=== PATIENT | male | born 1945 | race Caucasian/White ===

== ENCOUNTER 2020-08-26 07:59 | Day surgery (SDC) | payer MEDICARE, SELFPAY ==
[2020-08-21 09:28] VITALS: BMI 29.1
--- NOTE | 2020-08-22 08:01 | MHC.SHP ---
Pre-Procedural Eval Section A The patient is an INPATIENT: No The History & Physical has been completed within 30 days and I have reviewed it.: Yes Section B Chief Complaint: Cataract Right Eye Allergies: Allergies Allergy/AdvReac Type Severity Reaction Status Date / Time Iodinated Contrast Media Allergy Intermediate HIVES Verified 08/21/20 09:17 [IV CONTRAST] Plan Diagnosis/Plan: Unchanged Patient has been examined and remains a candidate for the planned procedure
--- NOTE | 2020-08-23 09:24 | P.CONAN_ITS ---
Documented by User: Yaneli Flowers 08/23/20 09:25 HPI - Anesthesia Eval Consult details Narrative: 74yo M for cataract PCP cleared [facility] Past Medical History Medical History Arthritis BPH (benign prostatic hyperplasia) COPD (chronic obstructive pulmonary disease) Elevated cholesterol HTN (hypertension) PVD (peripheral vascular disease) Thyroid disease Urinary frequency Surgical History Surgical History H/O colonoscopy History of carotid endarterectomy History of total left knee replacement Social History Social History Smoking Status: Former smoker Smoked in Last 30 Days: No Smoking Quit Date: 2015 Use of substances other than those prescribed or required for medical reasons: No Advance Directives Information Provided: No Recently lost weight without trying: No Meds Allergies Allergy/AdvReac Type Severity Reaction Status Date / Time Iodinated Contrast Media Allergy Intermediate HIVES Verified 08/21/20 09:17 [IV CONTRAST] Home Medications Medication Instructions Recorded Confirmed Type amlodipine 1 tab PO QAM 08/21/20 08/21/20 History aspirin [Aspirin Low Dose] 162 mg PO DAILY 08/21/20 08/21/20 History atorvastatin 1 tab PO BEDTIME 08/21/20 08/21/20 History cholecalciferol (vitamin D3) 25 mcg PO DAILY 08/21/20 08/21/20 History [Vitamin D3] levothyroxine 1 tab PO QAM 08/21/20 08/21/20 History lisinopril 1 tab PO DAILY 08/21/20 08/21/20 History multivitamin 1 tab PO DAILY 08/21/20 08/21/20 History tamsulosin 1 cap PO QPM 08/21/20 08/21/20 History Exam Exam Date and Time: August 23, 202024 Height,Weight and Vital Signs: Height 5 ft 11 in Weight 94.801 kg Assessment and Plan Assessment Anesthesia Assessment: Chart Reviewed Documented by User: Bree Yuan 08/26/20 09:48 [facility] Past Medical History Medical History Arthritis BPH (benign prostatic hyperplasia) COPD (chronic obstructive pulmonary disease) Elevated cholesterol HTN (hypertension) PVD (peripheral vascular disease) Thyroid disease Urinary frequency Surgical History Surgical History H/O colonoscopy History of carotid endarterectomy History of total left knee replacement Social History Social History Smoking Status: Former smoker Smoked in Last 30 Days: No Smoking Quit Date: 2015 Use of substances other than those prescribed or required for medical reasons: No Advance Directives Information Provided: No Recently lost weight without trying: No Meds Allergies Allergy/AdvReac Type Severity Reaction Status Date / Time Iodinated Contrast Media Allergy Intermediate HIVES Verified 08/21/20 09:17 [IV CONTRAST] Home Medications Medication Instructions Recorded Confirmed Type amlodipine 1 tab PO QAM 08/21/20 08/21/20 History aspirin [Aspirin Low Dose] 162 mg PO DAILY 08/21/20 08/21/20 History atorvastatin 1 tab PO BEDTIME 08/21/20 08/21/20 History cholecalciferol (vitamin D3) 25 mcg PO DAILY 08/21/20 08/21/20 History [Vitamin D3] levothyroxine 1 tab PO QAM 08/21/20 08/21/20 History lisinopril 1 tab PO DAILY 08/21/20 08/21/20 History multivitamin 1 tab PO DAILY 08/21/20 08/21/20 History tamsulosin 1 cap PO QPM 08/21/20 08/21/20 History Exam Airway Mallampati Class: II TM Dist: >3cm Neck ROM: Full Loose/Missing/Broken Teeth: Yes (Bigelow upper crown) Heart: RRR Lungs: CTA BL Assessment and Plan Assessment Anesthesia Assessment: Anesthesia Plan Discussed and Chart Reviewed Final Anesthetic Review NPO: Yes (Sip water with meds) ASA Class: III Final Preanesthetic Review: Meds/Allgs Chart Reviewed and Consent Obtained/Reviewed Patient Risk: Low Procedure Risk: Low Anesthetic Plan Anesthetic Plan: MAC: Disposition: Standard PACU
[2020-08-26 09:34] VITALS: BP 192/87; PULSE 59; RESP 16; TEMP 36.1; O2SAT 98
[2020-08-26] MEDS: Tropicamide 1 % Ophth Sol 3 ML BTL 1 DROP EYE-RIGHT ×3 (09:49→09:55)
[2020-08-26] MEDS: Tetracaine HCl/PF 0.5% Oph Sol 4 ML DROPS 1 DROP EYE-RIGHT (09:49)
[2020-08-26] MEDS: Lactated Ringers 500 ML 50 ML IV (09:50)
--- NOTE | 2020-08-26 10:30 | HO.PNOPHT ---
Ophthalmology Procedure Procedure Ophthalmology Viscoelastic: Rachel Albright Dual Pack Pro Ophthalmology Lenses: TECNIS [id number] (23) Procedure Notes: PREOPERATIVE DIAGNOSIS: Decreased visual acuity right eye secondary to cataract POSTOPERATIVE DIAGNOSIS: Same PROCEDURE: Right cataract extraction with intraocular lens insertion SURGEON: Wade Auguste M.D. ANESTHESIA: Topical/MAC ESTIMATED BLOOD LOSS: None COMPLICATIONS: None After obtaining informed consent, the patient was brought to the operating room suite and placed in the supine position. After adequate sedation per anesthesia, topical drops of Tetracaine were given to the right eye. The eye was then prepped and draped in the usual sterile fashion. The operating room microscope was then positioned over the operative eye and a lid speculum placed. A paracentesis was created. Viscoelastic was then instilled into the anterior chamber. A three plane incision was then created temporally, utilizing a 2.85 mm keratome. Capsulotomy forceps were then utilized to create a circular tear capsulotomy. Hydrodissection and hydrodelineation were carried out until adequate mobilization of the nucleus occurred. Phacoemulsification was then utilized to remove the dense central nucleus followed by removal of the cortical material utilizing the automated aspiration irrigation unit. Viscoelastic was instilled into the posterior capsular bag followed by placement of a posterior chamber intraocular lens without difficulty. The residual Viscoelastic was then removed utilizing the automated IA machine. The wound was checked and found to be watertight. The patient tolerated the procedure well and the lid speculum was removed. Intracameral injection of Vigamox 0.1 mL followed by a subtenon injection of Kenalog-40 0.2 mL were administered. The patient will be seen in the a.m.
== END 2020-08-26 11:00 | disposition home or self-care (01) ==
PROVIDERS: PCP Internal Medicine; Visit Provider Ophthalmology
PROC: (CPT 66985; principal; 2020-08-26 10:00)
DX: H25.11 Age-related nuclear cataract, right eye (principal); H54.7 Unspecified visual loss; I10 Essential (primary) hypertension; E78.00 Pure hypercholesterolemia, unspecified; J44.9 Chronic obstructive pulmonary disease, unspecified; Z79.899 Other long term (current) drug therapy; Z79.82 Long term (current) use of aspirin; Z87.891 Personal history of nicotine dependence; Z91.041 Radiographic dye allergy status
CPT/HCPCS: 66984; J2250; J3010; J3300; V2632

== ENCOUNTER 2020-09-09 09:04 | Day surgery (SDC) | payer MEDICARE, SELFPAY ==
--- NOTE | 2020-09-05 07:58 | MHC.SHP ---
Pre-Procedural Eval Section A The patient is an INPATIENT: No The History & Physical has been completed within 30 days and I have reviewed it.: Yes Section B Chief Complaint: Cataract Left Eye Allergies: Allergies Allergy/AdvReac Type Severity Reaction Status Date / Time Iodinated Contrast Media Allergy Intermediate HIVES Verified 08/21/20 09:17 [IV CONTRAST] Plan Diagnosis/Plan: Unchanged Patient has been examined and remains a candidate for the planned procedure
--- NOTE | 2020-09-06 09:15 | P.CONAN_ITS ---
Documented by User: Yaneli Flowers 09/06/20 14:07 HPI - Anesthesia Eval Consult details Narrative: 74yo M for cataract PCP cleared 1st eye 08/26/20: Fent 50, Mid[facility] 1 [facility] Past Medical History Medical History Arthritis BPH (benign prostatic hyperplasia) COPD (chronic obstructive pulmonary disease) Elevated cholesterol HTN (hypertension) PVD (peripheral vascular disease) Thyroid disease Urinary frequency Surgical History Surgical History H/O colonoscopy History of carotid endarterectomy History of total left knee replacement Social History Social History Smoking Status: Former smoker Advance Directives: No Meds Allergies Allergy/AdvReac Type Severity Reaction Status Date / Time Iodinated Contrast Media Allergy Intermediate HIVES Verified 08/21/20 09:17 [IV CONTRAST] Home Medications Medication Instructions Recorded Confirmed Type amlodipine 1 tab PO QAM 08/21/20 08/21/20 History aspirin [Aspirin Low Dose] 162 mg PO DAILY 08/21/20 08/21/20 History atorvastatin 1 tab PO BEDTIME 08/21/20 08/21/20 History cholecalciferol (vitamin D3) 25 mcg PO DAILY 08/21/20 08/21/20 History [Vitamin D3] levothyroxine 1 tab PO QAM 08/21/20 08/21/20 History lisinopril 1 tab PO DAILY 08/21/20 08/21/20 History multivitamin 1 tab PO DAILY 08/21/20 08/21/20 History tamsulosin 1 cap PO QPM 08/21/20 08/21/20 History Exam Exam Date and Time: September 06, 202015 Assessment and Plan Assessment Anesthesia Assessment: Chart Reviewed Documented by User: Bree Yuan 09/09/20 10:26 [facility] Past Medical History Medical History Arthritis BPH (benign prostatic hyperplasia) COPD (chronic obstructive pulmonary disease) Elevated cholesterol HTN (hypertension) PVD (peripheral vascular disease) Thyroid disease Urinary frequency Surgical History Surgical History H/O colonoscopy History of carotid endarterectomy History of total left knee replacement Social History Social History Smoking Status: Former smoker Advance Directives: No Meds Allergies Allergy/AdvReac Type Severity Reaction Status Date / Time Iodinated Contrast Media Allergy Intermediate HIVES Verified 08/21/20 09:17 [IV CONTRAST] Home Medications Medication Instructions Recorded Confirmed Type amlodipine 1 tab PO QAM 08/21/20 08/21/20 History aspirin [Aspirin Low Dose] 162 mg PO DAILY 08/21/20 08/21/20 History atorvastatin 1 tab PO BEDTIME 08/21/20 08/21/20 History cholecalciferol (vitamin D3) 25 mcg PO DAILY 08/21/20 08/21/20 History [Vitamin D3] levothyroxine 1 tab PO QAM 08/21/20 08/21/20 History lisinopril 1 tab PO DAILY 08/21/20 08/21/20 History multivitamin 1 tab PO DAILY 08/21/20 08/21/20 History tamsulosin 1 cap PO QPM 08/21/20 08/21/20 History Exam Airway Mallampati Class: II TM Dist: >3cm Neck ROM: Full Heart: RRR Lungs: CTA BL Assessment and Plan Assessment Anesthesia Assessment: Anesthesia Plan Discussed and Chart Reviewed Final Anesthetic Review NPO: Yes ASA Class: II Final Preanesthetic Review: No Changes in Pt Med Stat and Consent Obtained/Reviewed Patient Risk: Low Procedure Risk: Low Anesthetic Plan Anesthetic Plan: MAC: Disposition: Standard PACU
[2020-09-09 10:28] VITALS: BMI 28.6
[2020-09-09 10:49] VITALS: BP 164/76; PULSE 80; RESP 16; TEMP 36.4; O2SAT 96
[2020-09-09] MEDS: Lactated Ringers 500 ML 50 ML IV (10:53)
[2020-09-09] MEDS: Tetracaine HCl/PF 0.5% Oph Sol 4 ML DROPS 1 DROP EYE-LEFT (10:53)
[2020-09-09] MEDS: Tropicamide 1 % Ophth Sol 3 ML BTL 1 DROP EYE-LEFT ×3 (10:54→10:59)
--- NOTE | 2020-09-09 11:36 | HO.PNOPHT ---
Ophthalmology Procedure Procedure Ophthalmology Viscoelastic: Rachel Phant Dual Pack Pro Ophthalmology Lenses: TECNIS [id number] (23) Procedure Notes: PREOPERATIVE DIAGNOSIS: Decreased visual acuity left eye secondary to cataract POSTOPERATIVE DIAGNOSIS: Same PROCEDURE: Left cataract extraction with intraocular lens insertion SURGEON: Wade Auguste M.D. ANESTHESIA: Topical/MAC ESTIMATED BLOOD LOSS: None COMPLICATIONS: None After obtaining informed consent, the patient was brought to the operation room suite and placed in the supine position. After adequate sedation per anesthesia, topical drops of Tetracaine were given to the left eye. The eye was then prepped and draped in the usual sterile fashion. The operating room microscope was then positioned over the operative eye and a lid speculum placed. A paracentesis was created. Viscoelastic was then instilled into the anterior chamber. A three plane incision was then created temporally, utilizing a 2.85 mm keratome. Capsulotomy forceps were then utilized to create a circular tear capsulotomy. Hydrodissection and hydrodelineation were carried out until adequate mobilization of the nucleus occurred. Phacoemulsification was then utilized to remove the dense central nucleus followed by removal of the cortical material utilizing the automated aspiration irrigation unit. Viscoat elastic was instilled into the posterior capsular bag followed by placement of a posterior chamber intraocular lens without difficulty. The residual Viscoat elastic was then removed utilizing the automated IA machine. The wound was check and found to be watertight. The patient tolerated the procedure well and the lid speculum was removed. Intracameral injection of Vigamox 0.1 mL followed by a subtenon injection of Kenalog-40 0.2 mL were administered. The patient will be seen in the a.m.
[2020-09-09 11:38] VITALS: BP 150/71; PULSE 58; RESP 18; TEMP 36.4; O2SAT 100
== END 2020-09-09 12:16 | disposition home or self-care (01) ==
PROVIDERS: PCP Internal Medicine; Visit Provider Ophthalmology
PROC: (CPT 66985; principal; 2020-09-09 11:30)
DX: H25.12 Age-related nuclear cataract, left eye (principal); H52.4 Presbyopia; I10 Essential (primary) hypertension; J44.9 Chronic obstructive pulmonary disease, unspecified; I73.9 Peripheral vascular disease, unspecified; Z79.899 Other long term (current) drug therapy; Z91.041 Radiographic dye allergy status; Z96.652 Presence of left artificial knee joint; Z87.891 Personal history of nicotine dependence
CPT/HCPCS: 66984; J2250; J3010; J3300; V2632

== ENCOUNTER 2021-06-03 13:58 | Outpatient (REF) | payer MEDICARE, SELFPAY ==
--- NOTE | ~2021-06-03 | CT_ITS ---
EXAMINATION: CT CHEST SCREENING CLINICAL INFORMATION: Smoking history COMPARISON: Previous chest CT scans most recent January 2020 TECHNIQUE: Multidetector volumetric CT imaging of the chest is performed without contrast using low dose technique. Additional 2D coronal and sagittal reformatted images and axial 3D maximum intensity projection (MIP) images are generated on the CT workstation. This CT examination was performed using dose optimization techniques as appropriate, variously including the following: *Automated exposure control *Adjustment of mA and/or kV according to patient size (this includes techniques or standardized protocols for targeted exams where dose is matched to indication/reason for exam; i.e. extremities or head) *Use of iterative reconstruction technique DLP: 60 mGy-cm FINDINGS: LUNGS: There is evidence of emphysema. The small pulmonary nodules are stable. Largest pulmonary nodule is a 4 mm triangular-shaped peripheral or subpleural right middle lobe nodule axial image 366 series 5. This probably represents a subpleural lymph node. There is linear scarring or subsegmental atelectasis of the left lung base. The lungs are otherwise clear. No endobronchial or endotracheal lesion is seen. MEDIASTINUM: There is coronary artery calcification. The heart does not appear enlarged. There is no pericardial effusion. The thoracic aorta is normal in caliber. There are no enlarged hilar or mediastinal lymph nodes. PLEURA: There is no pleural effusion. No pleural mass or thickening. AXILLA: No lymphadenopathy. UPPER ABDOMEN: Unremarkable OSSEOUS STRUCTURES: There are degenerative changes at the shoulder joints. There are degenerative changes of the spine. CT/CT lung screening IMPRESSION: Mild emphysema. Stable small pulmonary nodules. Coronary artery calcification. ASSESSMENT: Lung-RADS category 2: Benign RECOMMENDATION: Annual low-dose chest CT follow-up recommended.
== END 2021-06-03 13:59 | disposition home or self-care (01) ==
LOC: HO.CT 13:58
PROVIDERS: Visit Provider Physician Assistant Medical
DX: Z12.2 Encounter for screening for malignant neoplasm of respiratory organs (principal); Z87.891 Personal history of nicotine dependence
CPT/HCPCS: 71271

== ENCOUNTER 2022-03-13 10:14 | Outpatient (REF) | payer MEDICARE, SELFPAY ==
--- NOTE | 2022-03-13 | PFT_ITS ---
Forced vital capacity 95%, FEV1 82%. FEV1/FVC ratio is 62. FEF 25-75 42% and MVV is 83%. Post-bronchodilator therapy, there is a slight improvement in FEF 25-75, but not in other parameters. Total lung capacity 97%. Residual volume 114%. Diffusion capacity 58%. CONCLUSION: There is evidence of mild obstructive airway disorder with minimal improvement after bronchodilator therapy. Clinical correlation is recommended. MD ALISSON Callejas/FARZAD / [id number]
== END 2022-03-13 10:15 | disposition home or self-care (01) ==
LOC: HO.RESP 10:14
PROVIDERS: PCP Internal Medicine; Visit Provider Internal Medicine
DX: J44.9 Chronic obstructive pulmonary disease, unspecified (principal)
CPT/HCPCS: 94060; 94727; 94729

== ENCOUNTER 2022-11-23 15:24 | Outpatient (REF) | payer MEDICARE, SELFPAY ==
--- NOTE | ~2022-11-23 | CT_ITS ---
EXAMINATION: CT CHEST SCREENING CLINICAL INFORMATION: Personal history of nicotine dependence. COMPARISON: CT lung screening 06/03/2021, 02/12/2020, and 11/08/2019. TECHNIQUE: Multidetector volumetric CT imaging of the chest is performed without contrast using low dose technique. Additional 2D coronal and sagittal reformatted images and axial 3D maximum intensity projection (MIP) images are generated on the CT workstation. This CT examination was performed using dose optimization techniques as appropriate, variously including the following: *Automated exposure control *Adjustment of mA and/or kV according to patient size (this includes techniques or standardized protocols for targeted exams where dose is matched to indication/reason for exam; i.e. extremities or head) *Use of iterative reconstruction technique DLP: 62 mGy-cm FINDINGS: LUNGS: The lungs are well-expanded and without any acute pneumonic consolidation. There is a pleural-based triangular 4 mm nodule right middle lobe axial image 384/6, stable, 1 mm punctate calcification superior segment right lower lobe axial image 306/6, 1 mm subpleural nodule left upper lobe axial image 214/6, stable. No additional nodules visualized. MEDIASTINUM: The thyroid lobes are symmetrical and normal. Central trachea and the bronchi are widely patent. The heart size and the great vessels are normal caliber. No pericardial effusion seen. There is mild atherosclerotic calcification of thoracic arch. No abnormal size mediastinal or hilar lymph nodes seen. No abnormal size mediastinal or hilar lymph nodes visualized. CORONARY ARTERY CALCIFICATION: Slmo-nm-dxgcuase coronary artery calcifications are present. PLEURA: There is no pleural effusion. No pleural mass or thickening. AXILLA: No lymphadenopathy. UPPER ABDOMEN: Visualized liver, spleen, pancreas and bilateral adrenal glands are unremarkable. There is a hypodense partially exophytic lesion upper pole right kidney. OSSEOUS STRUCTURES: No aggressive lytic or sclerotic process seen. There is mild ventral spondylosis dorsal spine. CT/CT lung screening IMPRESSION: Stable bilateral pulmonary nodules. No new nodules seen. There is a hypodense partially exophytic lesion upper pole right kidney, likely complex cyst. ASSESSMENT: Lung-RADS category 2: Benign. RECOMMENDATION: Low-dose annual CT chest.
== END 2022-11-23 15:25 | disposition home or self-care (01) ==
LOC: HO.CT 15:24
PROVIDERS: PCP Internal Medicine; Visit Provider Physician Assistant Medical
DX: Z12.2 Encounter for screening for malignant neoplasm of respiratory organs (principal); Z87.891 Personal history of nicotine dependence
CPT/HCPCS: 71271

== ENCOUNTER 2023-07-01 13:48 | Outpatient (REF) | payer MEDICARE, SELFPAY ==
--- NOTE | ~2023-07-01 | US_ITS ---
EXAMINATION: US RETROPERITONEAL LIMITED (RENAL ONLY) CLINICAL INFORMATION: Complex renal cyst. COMPARISON: CT abdomen and pelvis 10/04/2015. TECHNIQUE: Real-time imaging of the kidneys. FINDINGS: RIGHT KIDNEY: 11.6 x 5.0 x 5.5 cm (SAG x AP x TRV). The kidney is normal in size, contour, and echogenicity. Renal cortical thickness is normal. No renal calculi or hydronephrosis. Upper pole cyst measures 1.5 x 1.5 x 1.5 cm. Upper pole cyst measures 1.2 x 1.0 x 1.3 cm. Upper pole cyst measures 1.1 x 1.3 x 1.2 cm. Lower pole cyst measures 3.8 x 3.1 x 2.9 cm. Upper pole cyst with septation measures 1.1 x 1.6 x 1.2 cm. LEFT KIDNEY: 10.8 x 4.7 x 4.6 cm (SAG x AP x TRV). The kidney is normal in size, contour, and echogenicity. Renal cortical thickness is normal. No renal calculi or hydronephrosis. Upper pole cyst measures 2.1 x 1.8 x 1.8 cm. Lower pole cyst measures 2.2 x 2.2 x 2.3 cm. US/US renal BI IMPRESSION: Bilateral renal cysts. No suspicious sonographic features. No further imaging follow-up is needed.
== END 2023-07-01 13:49 | disposition home or self-care (01) ==
LOC: HO.HMGCX 13:48
PROVIDERS: PCP Internal Medicine; Visit Provider Internal Medicine
DX: N28.1 Cyst of kidney, acquired (principal)
CPT/HCPCS: 76775

== ENCOUNTER 2023-12-13 12:39 | Outpatient (REF) | payer MEDICARE, SELFPAY ==
--- NOTE | ~2023-12-13 | CT_ITS ---
EXAMINATION: CT CHEST SCREENING CLINICAL INFORMATION: Personal history of nicotine dependence COMPARISON: November 2022, January 2020. TECHNIQUE: Multidetector volumetric CT imaging of the chest is performed without contrast using low dose technique. Additional 2D coronal and sagittal reformatted images and axial 3D maximum intensity projection (MIP) images are generated on the CT workstation. This CT examination was performed using dose optimization techniques as appropriate, variously including the following: *Automated exposure control *Adjustment of mA and/or kV according to patient size (this includes techniques or standardized protocols for targeted exams where dose is matched to indication/reason for exam; i.e. extremities or head) *Use of iterative reconstruction technique DLP: 61 mGy-cm FINDINGS: LUNGS: The lungs are clear with no evidence of inflammation or nodules. MEDIASTINUM: The mediastinum is normal. CORONARY ARTERY CALCIFICATION: Coronary artery calcifications are moderate to heavy. PLEURA: There is no pleural effusion. No pleural mass or thickening. AXILLA: No lymphadenopathy. UPPER ABDOMEN: Unremarkable OSSEOUS STRUCTURES: Unremarkable. CT/CT lung screening IMPRESSION: Unremarkable examination. ASSESSMENT: Lung-RADS category 1: Negative RECOMMENDATION: Routine annual low-dose CT screening in 12 months.
== END 2023-12-13 12:40 | disposition home or self-care (01) ==
LOC: HO.CT 12:39
PROVIDERS: PCP Internal Medicine; Visit Provider Nurse Practitioner Family
DX: Z12.2 Encounter for screening for malignant neoplasm of respiratory organs (principal); Z87.891 Personal history of nicotine dependence
CPT/HCPCS: 71271

== ENCOUNTER → 2025-04-24 07:44 | Outpatient (REF) | payer MEDICARE, SELFPAY ==
--- OUTSIDE RECORDS SUMMARY | 2025-04-24 07:46 | XMS_ITS | Patient Health Record ---
Author Organization [facility] Address [address] [place] [address] Care Team Providers Care Belt Machine Operator Name Role Phone Anant Whittaker MD Primary Care Provider Ed Parker [phone] Allergies Allergen (clinical drug ingredient) Drug/Non Drug Allergy documented on EMR Reaction Allergy Type Onset Date Status IVP Dye (uncoded) Unknown Allergy Ac tive Reason For Referral No Information Medications Medication SIG (Take, Route, Frequency, Duration) Notes Start Date End Date Status Lisinopril 10 MG 1 tablet Orally Once a day Active MoviPrep 100 GM as directed Orally a s directed for 1 dose 04/03/2014 Active Atorvastatin Calcium 40 MG 1 tablet Oral ly Once a day Active Aspirin Adult Low Strength 81 MG 1 tablet Orally Once a day Active Zetia 10 MG 1 tablet Orally Once a day Active Synthroid 100 MCG 1 tablet on an empty stomach in the morning Orally Once a day Active Problems Problem Type SNOMED Code ICD Code Onset Dates Problem Status W/U Status Risk Notes Problem Already on aspirin (384211537) Long-term (current) use of aspirin (V58.66) Active confirmed Problem Colon cancer screening (V76.51) Active confirmed Problem History of adenomatous polyp of colon (582461780) History of adenomatous polyp of colon (V12.72) Active confirmed Plan Of Treatment Future Test Test Name Order Date COLONOSCOPY 04/03/2014 Insurance Providers Payer Name Payer Address Payer Phone Subscriber Number Group Number Insured Name Patient Relationship to Insured Coverage Start Date Coverage End Date [employer] [address] [address] [place] [address] [id number] AALIYAH MITCHELL Self - patient is the insured Medicare of [place] [employer] [address] [place] [address] [id number] AALIYAH MITCHELL Self - patient is the insured Medical (General) History Medical History History ICD Code Colonoscopy 12-07-2008--only a hyperplastic polyp removed--had a tubular adenoma in 2001 with a screening colonoscopy--also noted to have sigmoid diverticulosis and internal hemorrhoids history of kidney stones HTN 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
--- NOTE | 2025-04-24 12:43 | CA_ITS ---
Transthoracic Echocardiogram Patient (Last, First, Middle): Jose Vital J Gender: Male Date of : 1945 Age: 79 Procedure Date: 04/24/2025 Procedure Type: Transthoracic Echocardiogram Location: OP Height: 177.8 cm Weight: 87.09 kg BSA: 2.05 m2 Heart Rate: bpm BP: 124 / 80 mmHg Retail Merchandising Specialist: Referring MD: Anant Whittaker MD Symptoms: I10 HTN Study Quality: Good ECG Rhythm: Sinus with PVCs Conclusions: - The left ventricular systolic function is normal. The calculated ejection fraction is 56% by biplane method. - No obvious valvular pathology seen on this study. Findings Left Ventricle Normal left ventricular cavity size. There is moderately increased left ventricular wall thickness. The left ventricular systolic function is normal. The calculated ejection fraction is 56% by biplane method. There is no evidence of regional wall motion abnormalities. Diastolic function is normal for age. Right Ventricle Normal right ventricular cavity size and systolic function. Atria Both atria are normal in size. Aortic Valve There is a normal trileaflet aortic valve. There is no aortic valve stenosis. There is no aortic valve regurgitation. Mitral Valve The mitral valve appears normal. There is trace mitral valve regurgitation. There is no mitral valve stenosis. Pulmonic Valve The pulmonic valve is likely normal. Tricuspid Valve Normal tricuspid valve structure. There is mild tricuspid valve regurgitation. There is no evidence of pulmonary hypertension. Great Vessels The asc aorta is normal in size. Venous The inferior vena cava is normal in size and collapses greater than 50% with inspiration. Pericardium/Pleural There is no evidence of pericardial effusion. Prior Study Comparison No prior study available for comparison. Recommendations, Care & Conclusions No obvious valvular pathology seen on this study. Measurements 2D Linear Measurements IVSd: 1.39 0.6-0.9/0.6-1.0 cm LVIDd: 4.49 3.9-5.3/4.2-5.9 cm LVIDd Index: 2.19 2.4-3.2/2.2-3.1 cm/m2 LVIDs: 2.65 2.0-3.6 cm LVPWd: 1.23 0.7-1.1 cm Ao Root: 3.40 2.1-3.5 cm LA Diam: 4.10 2.7-3.8/3.0-4.0 cm LAIDs Index: 2.00 1.5-2.3 cm/m2 LV Mass: 279.66 67-162/88-224 g LV Mass Index: 136.42 43-95/49-115 g/m2 LVOT Diam: 2.50 3.0+(-)1.3 cm 2D Systolic Function EF 4C: 52.00 >55% EF 2C: 61.80 >55% EF BiP: 56.30 >55% Mitral Valve MV VTI: 0.48 MV Pk Jose: 1.09 MV Mn Jose: 0.67 MV Pk Grad: 5.00 MV Mn Grad: 2.00 MV Pk E: 0.77 MV PK A: 0.90 MV Decel Time: 234.00 E/A: 0.90 E'Lateral: 12.30 E'Medial: 6.31 E/E' Med: 12.20 E/E' Lat: 6.20 PHT: 68.00 MVA PHT: 3.24 MVA Continuity: 2.10 Decel [place]: 3.28 Aortic Valve AoV Pk Jose: 1.40 AoV Pk Grad: 8.00 LVOT LVOT Pk Jose: 0.83 LVOT Mn Joes: 0.58 LVOT VTI: 0.20 LVOT Pk Grad: 3.00 LVOT Mn Grad: 2.00 LVOT Diam: 2.50 LVOT Area: 4.91 Diastolic Function MV Pk E: 0.77 MV Pk A: 0.90 E/A: 0.90 E'Medial: 6.31 E/E' Med: 12.20 E' Laterial: 12.30 E/E' Lat: 6.20 Right Ventricle TAPSE (mm): 36.00 Tricuspid Valve TR Pk Jose: 2.67 TR Pk Grad: 29.00 RA Press: 3.00 RVSP: 32.00 Great Vessels Aorta Ao Root-2D: 3.40 2.0-3.7 cm Ao Asc: 3.80 2.1-3.4 cm Pulmonary Valve PV Pk Jose: 0.96 Peak PV Grad: 4.00 Updated in Other Vendor System with Status of Final Gurdeep Santos MD electronically signed on 04/25/2025 9:16:15 AM with status of Final
--- NOTE | 2025-04-24 12:44 | HM_ITS ---
Conclusion: 1. Patient was monitored for total period of 1 day 2. Baseline was normal sinus rhythm with average heart of 62 beats per minute 3. Frequent PACs noted with total burden of 10.3% with 3 short runs of SVE is most consistent with atrial tachycardia, longest 19 beats with the fastest heart rate of 123 beats per minute 4. Frequent PVCs noted with total burden of 5.5% 5. No patient reported events MTDD
== END ==
LOC: HO.CARD 07:44
PROVIDERS: PCP Internal Medicine; Visit Provider Internal Medicine
DX: I10 Essential (primary) hypertension (principal); I49.3 Ventricular premature depolarization; R00.1 Bradycardia, unspecified
CPT/HCPCS: 93225; 93306

== ENCOUNTER → 2025-04-24 12:43 | Outpatient (BNV) | payer MEDICARE, SELFPAY | PROVIDERS: PCP Internal Medicine; Visit Provider Internal Medicine | DX: I10 Essential (primary) hypertension (principal); I34.0 Nonrheumatic mitral (valve) insufficiency; I36.1 Nonrheumatic tricuspid (valve) insufficiency | CPT/HCPCS: 93306 ==

== ENCOUNTER 2025-05-03 13:14 | Outpatient (AMB) | payer MEDICARE, SELFPAY ==
--- OUTSIDE RECORDS SUMMARY | 2021-01-08 07:15 | XMS_ITS | Continuity of Care Document ---
Author Name [facility] Organization [facility] Care Team Providers Care Joy Operator Name Role Phone [facility] Unavailable Unavailable Problems Combined list of problems from Department of Defense and Veterans Affairs facilities. It does not include entries that were removed or entered in error. Problem Status Onset Date Problem Type Date of Resolution Comments Source Chronic obstructive lung disease Active Condition [facility] Essential hypertension Active [facility] Hyperlipidemia Active Condition [facility] Hypothyroid Active Condition [facility] Symptomatic carotid artery stenosis Active Condition [facility] Tobacco dependence, continuous Inactive Condition 04/14/2017 [facility] Medications Combined list of outpatient medications from Department of Defense and Veterans Affairs facilities.Medications provided include 1) outpatient medications from the last 15 months, and 2) patient-reported medications. Medication Details Route Status Patient Instructions Prescription Expires Prescription Number Last Dispense Date Ordering Provider Order Date Order Qty Source ASPIRIN 81MG TAB,EC TAKE ONE TABLET BY MOUTH DAILY ORAL ACTIVE KIRCHEN,N ICOLE 2015 [facility] ATORVASTATI N CA 80MG TAB TAKE ONE-HALF TABLET BY MOUTH DAILY ORAL ACTIVE KIRCHEN,N ICOLE 2015 [facility] EZETIMIBE 10MG TAB TAKE ONE TABLET BY MOUTH DAILY ORAL ACTIVE KIRCHEN,N ICOLE 2015 [facility] GLUCOSAMINE /CHONDROITI N CAP/TAB TAKE 500-400M G CAP BY MOUTH THREE TIMES A DAY ORAL ACTIVE KIRCHEN,N ICOLE 2015 [facility] IBUPROFEN 600MG TAB TAKE ONE TABLET BY MOUTH THREE TIMES A DAY ORAL ACTIVE CORTEZ,N ICOLE 2015 [facility] LEVOTHYROXI NE NA 100MCG TAB (SYNTHROID) TAKE ONE TABLET BY MOUTH EVERY MORNING 30 MINUTES BEFORE BREAKFAS T ORAL ACTIVE Sabi TORO ICOLE [facility] LISINOPRIL 20MG TAB TAKE ONE TABLET BY MOUTH DAILY ORAL ACTIVE Sabi TORO ICOLE 2016 [facility] Allergies, Adverse Reactions, Alerts Combined list of allergies from Department of Defense and Veterans Affairs facilities. It does not include entries that were removed or entered in error. Substance Category Reaction Severity Reaction type Status Date Reported Comments Source INTRAVASCULA R CONTRAST MEDIA Propensity to adverse reactions to drug (finding) Urticaria active 6 [facility] Immunizations Combined list of available immunizations from the Department of Defense and Veterans Affairs facilities. Immunization Series Date Given Administered By Site Reaction Lot Number CVX Code Drug Puttying And Calking Supervisor Status Comments Source COVID-19 (MODERNA), MRNA, LNP-S, PF, 100 MCG/0.5 ML DOSE 2 2020 207 complet ed MOD; [id number]; 1 [facility] COVID-19 (MODERNA), MRNA, LNP-S, PF, 100 MCG/0.5 ML DOSE 1 2020 207 complet ed MOD; [id number]; 1 [facility] PNEUMOCOCCAL CONJUGATE PCV 13 2015 133 complet [facility] FLU,3 YRS (HISTORICAL) [address] [facility] DTAP, UNSPECIFIED FORMULATION 2014 107 complet ed [facility] TET-DIP-A/PER TUSSIS (HISTORICAL) 2012 139 complet ed [facility] ZOSTER (HISTORICAL) 2011 [facility] PNEUMOCOCCAL POLYSACCHARID E PPV23 2009 33 complet ed [facility] [place] [facility] Social History Combined list of available smoking, tobacco, and other social history from Department of Defense and Veterans Affairs facilities. Social History Type Response Date Comment Source Tobacco smoking status NHIS QUIT TOBACCO USE 1-7 YEARS AGO 04/14/2017 [facility] [place] History of tobacco use CURRENT SMOKER 04/15/2016 half to 3/4 pack a [facility]
--- OUTSIDE RECORDS SUMMARY | 2025-05-03 13:22 | XMS_ITS | Patient Health Record ---
Author Organization [facility] Address [address] [place] [address] Care Team Providers Care Roll Line Operator Name Role Phone Anant Whittaker MD Primary Care Provider Ed Parker [phone] Allergies Allergen (clinical drug ingredient) Drug/Non Drug [...] Status Risk Notes Problem Already on aspirin (436188300) Long-term (current) use of aspirin (V58.66) Active confirmed Problem Colon cancer screening (V76.51) Active confirmed Problem History of adenomatous polyp of colon (955739054) History of adenomatous polyp of colon (V12.72) Active confirmed Plan Of Treatment Future Test Test Name Order Date COLONOSCOPY 04/03/2014 Insurance Providers Payer Name Payer Address Payer Phone Subscriber Number Group Number Insured Name Patient Relationship to Insured Coverage Start Date Coverage End Date [employer] [address] [address] [place] [address] [id number] AALIYAH MITCHELL Self - patient is the insured Medicare of [place] [employer] [address] [place] [address] [id number] AALIYAH MITCHELL Self - patient is the insured Medical (General) History Medical History History ICD Code Colonoscopy 12-07-2008--only a hyperplastic polyp removed--had a tubular adenoma in 2001 with a screening colonoscopy--also noted to have sigmoid diverticulosis and internal hemorrhoids history of kidney stones HTN 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
[2025-05-03 13:23] VITALS: BP 108/60; PULSE 67; BMI 28.3
--- NOTE | 2025-05-03 13:23 | A.OFFVIS_ITS ---
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 He said he rides stationary bike 8 miles every day. He has no active cardiac symptoms of chest pain or shortness of breath. He said recently on a annual visit was noted to have slow heart rate subsequent EKG confirmed presence of ectopy beats. He subsequently underwent a Holter monitor which showed frequent isolated PACs and PVCs without any sustained arrhythmias. Echocardiogram done subsequently shows normal LV ejection fraction 56% without any major valvular abnormalities. He is doing well. Denies any symptoms of palpitation skipped heartbeats. He denies lightheadedness, syncope. Takes all his medications says blood pressures been generally well controlled. He denies any orthopnea, PND, leg edema. FORMERLY [facility], 1928–1983 Medical History Urinary frequency Arthritis BPH (benign prostatic hyperplasia) Thyroid disease COPD (chronic obstructive pulmonary disease) Elevated cholesterol PVD (peripheral vascular disease) HTN (hypertension) Surgical History H/O colonoscopy History of total left knee replacement History of carotid endarterectomy Family History Father No problems noted. Mother Heart attack Diabetes Social History Are you a primary children's zoo caretaker to a significant other at home: No Do you presently have visiting nurse or other home services: No Alcohol intake: never Patient Tobacco Use Status: Former Tobacco user Review of Systems Const Denies weakness Eyes Reports no additional complaints ENT Reports no additional complaints and Denies dizziness Card Reports no additional complaints, Denies chest pain, Denies chest pain with activity, Denies syncope, Denies rapid heart rate, Denies pedal edema, Denies edema, Denies leg edema, Denies lightheadedness, Denies palpitations, Reports dyspnea, Denies dyspnea on exertion and Denies orthopnea Resp Denies cough, Reports dyspnea and Denies dyspnea on exertion GI Denies hematochezia and Denies change in stool character Musc Denies abnormal gait, Denies muscle cramps, Denies muscle weakness, Denies numbness, Denies radiating pain into limb and Denies tingling Neuro Denies abnormal gait, Denies dizziness, Denies syncope, Denies numbness, Denies tingling and Denies weakness Endo Denies palpitations Physical Exam Vital Signs: Last Vital Signs Pulse 67 05/03/25 13:23 BP 108/60 05/03/25 13:23 BMI result Body Mass Index 28.3 Const General: cooperative, comfortable, no acute distress, alert, awake and Physically active Nutritional Appearance: average body habitus Orientation/consciousness: patient oriented x3 Limitations: no limitations HEENT Head: Yes normocephalic and Yes atraumatic Neck Neck: Yes trachea midline, Yes supple and Yes no JVD Resp Effort & Inspection: normal respiratory effort Auscultation: clear to auscultation bilaterally Cardio Jugular venous distension: no JVD Rate: regular rate Rhythm: abnormal rhythm with ectopic beats Heart sounds: S1 normal heart sound present, S2 normal heart sound present, no click, no gallops and no murmurs GI Auscultation: normal bowel sounds Skin General skin exam: no rashes or lesions noted Neuro General: patient oriented x3 and no focal motor deficits Extrem General: Yes no clubbing, cyanosis or edema Psych Appearance: grossly normal Office Procedures EKG Details: EKG shows normal sinus rhythm with frequent PVCs, appears to be from 2 foci with left axis deviation [id number], Complete Assessment & Plan Assessment & Plan (1) Cardiac arrhythmia: Code(s): I49.9 - Cardiac arrhythmia, unspecified Category: Medical Plan: Patient noted to have bradycardia which appears to me spurious given his frequent cardiac arrhythmias and known in patients with PVCs to have lower palpable pulse rate. He has no symptoms. Does not require any therapy. Does have frequent PACs and PVCs noted on Holter monitor. He again has no symptoms related to it. Given his heart rate on the slow side would avoid any pharmacotherapy for the now. His LV systolic function is normal. He currently does not have any active ischemic symptoms and I do not think he requires any active workup from that perspective he is currently well treated for atherosclerotic disease. I would continue with aspirin therapy as well as statin therapy. Target goal LDL less than 70 mg/dL. Avoidance of stimulants was discussed. He is at risk for developing atrial fibrillation this was discussed with him. Advised to call me with any prolonged palpitation irregular heartbeat. (2) HTN (hypertension): Code(s): I10 - Essential (primary) hypertension Category: Medical Plan: Hypertension which is currently well optimized. Advised to monitor blood pressure at home maintain a log. Goal blood pressure less than 130/84. Low- salt diet was advised. Advised to maintain activity level as tolerated. Will follow up in the clinic in 1 year's time, sooner p.r.n.. Thank you for allowing me to partake in his care Coding Level of Care Code New Pt Level 4 (39446) Complex EM visit Add On G2211 Diagnoses Cardiac arrhythmia I49.9 HTN (hypertension) I10 CPT Codes EKG - CPT: 33404-[id number], Complete ([id number])
== END 2025-05-03 13:40 | disposition home or self-care (01) ==
LOC: HO.HCS 13:15
PROVIDERS: PCP Internal Medicine; Visit Provider Internal Medicine Cardiovascular Disease
DX: I49.9 Cardiac arrhythmia, unspecified (principal); I10 Essential (primary) hypertension; I49.3 Ventricular premature depolarization
CPT/HCPCS: 93010; 99214; G2211

== ENCOUNTER → 2025-05-03 13:14 | Outpatient (BNVA) | payer MEDICARE, SELFPAY | PROVIDERS: PCP Internal Medicine; Visit Provider Internal Medicine Cardiovascular Disease | DX: I49.1 Atrial premature depolarization (principal); I49.3 Ventricular premature depolarization; I49.9 Cardiac arrhythmia, unspecified; I10 Essential (primary) hypertension; Z79.82 Long term (current) use of aspirin; Z79.899 Other long term (current) drug therapy | CPT/HCPCS: 93005; 99212 ==